=== PATIENT | female | born 1980 | race Caucasian/White ===

== ENCOUNTER 2018-02-20 06:22 | Emergency (ER) | payer OTHER ==
[2018-02-20 06:30] VITALS: RESP 16
[2018-02-20] MEDS ORDERED: AMOXIC-POT CLAV 875MG STARTER 2 EACH TABLET PO STA (07:14)
--- NOTE | 2018-02-20 07:19 | ED ---
ENT HPI - General Chief complaint: Dental/Oral Stated complaint: Dental Pain Time Seen by Provider: 02/20/18 07:02 Source: patient, RN notes reviewed, old records reviewed Mode of arrival: ambulatory Limitations: no limitations - History of Present Illness Initial comments: Patient is a 37-year-old female presents emergency Department due to complaint of dental pain. Patient reports that she had tooth #18 extracted approximately 10 days ago. Patient is concerned that it is infected because she's had increased pain over the past day. Patient has had no fevers or chills. She is here on a . She lives in [place]. Patient states that she's had no trismus. Denies any drainage in the mouth. Patient states that she's been taking ibuprofen for pain. - Related Data Previous Rx's Medication Instructions Recorded Amoxic-Pot Clav 875-125Mg 1 tab PO Q12HR #20 tablet 02/20/18 [Augmentin 875-125] HYDROcodone/APAP 5-325MG [[place] 1 tab PO Q6HR PRN #10 tab 02/20/18 5-325] Allergies Allergy/AdvReac Type Severity Reaction Status Date / Time acetaminophen Allergy Chest Pain Verified 02/20/18 06:31 [From Tylenol-Codeine #3] codeine Allergy Chest Pain Verified 02/20/18 06:31 [From Tylenol-Codeine #3] sulfamethoxazole Allergy Swelling Verified 02/20/18 06:31 [From Bactrim] tramadol Allergy Vomiting Verified 02/20/18 06:31 trimethoprim [From Bactrim] Allergy Swelling Verified 02/20/18 06:31 Review of Systems ROS Statement: Those systems with pertinent positive or pertinent negative responses have been documented in the HPI. ROS Other: All systems not noted in ROS Statement are negative. Past Medical History Past Medical History: No Reported History History of Any Multi-Drug Resistant Organisms: None Reported Past Surgical History: Cholecystectomy, Tubal Ligation Past Psychological History: No Psychological Hx Reported Smoking Status: Never smoker Past Alcohol Use History: None Reported, Unable to Obtain General Exam - General Exam Comments Initial Comments: 37-year-old female. Alert and oriented. Patient appears in no acute distress. Limitations: no limitations General appearance: alert Head exam: Present: atraumatic, normocephalic, normal inspection Eye exam: Present: normal appearance, PERRL, EOMI. Absent: scleral icterus, conjunctival injection, periorbital swelling ENT exam: Present: normal exam, mucous membranes moist. Absent: normal oropharynx ( has an extracted tooth #18. Surrounding gingival erythema. No drainable abscess at this time.) Neck exam: Present: normal inspection. Absent: tenderness, meningismus, lymphadenopathy Respiratory exam: Present: normal lung sounds bilaterally. Absent: respiratory distress, wheezes, rales, rhonchi, stridor Cardiovascular Exam: Present: regular rate, normal rhythm, normal heart sounds. Absent: systolic murmur, diastolic murmur, rubs, gallop, clicks GI/Abdominal exam: Present: soft, normal bowel sounds. Absent: distended, tenderness, guarding, rebound, rigid Extremities exam: Present: normal inspection, full ROM, normal capillary refill. Absent: tenderness, pedal edema, joint swelling, calf tenderness Back exam: Present: normal inspection Neurological exam: Present: alert, oriented X3, CN II-XII intact Psychiatric exam: Present: normal affect, normal mood Skin exam: Present: warm, dry, intact, normal color. Absent: rash Course Vital Signs 02/20/18 06:26 Temperature 98.7 F Pulse Rate 83 Respiratory 16 Rate Blood Pressure 118/73 O2 Sat by Pulse 99 Oximetry Medical Decision Making - Medical Decision Making Patient is a 37-year-old female presents emergency Department due to complaint of tooth #18 pain. She had it extracted approximately 10 days ago in [place]. She is here in a . She does have gingival erythema. No focal abscess at this time to be drained. Patient will be started on Augmentin , ibuprofen short course of pain meds. Discussed close follow-up with her dentist. She does have an appointment on Saturday. Patient agrees to treatment plan will comply. Return parameters were discussed. Disposition Clinical Impression: Pain, dental Disposition: HOME SELF-CARE Condition: Good Instructions: Toothache (ED) Additional Instructions: Patient advised to take medication as prescribed. Return to the emergency department if any alarming signs or symptoms occur. [facility] [place] [address] [phone] (existing clients only) For new clients: [phone] 1st consult: $50 (includes Xrays) Usually 30% less then private dentist for visits after. [employer] Have to pay $50 for Xrays anmd rest is covered. [phone] Prescriptions: Amoxic-Pot Clav 875-125Mg [Augmentin 875-125] 1 tab PO Q12HR #20 tablet HYDROcodone/APAP 5-325MG [[place] 5-325] 1 tab PO Q6HR PRN #10 tab PRN Reason: Pain Is patient prescribed a controlled substance at d/c from ED?: Yes When asked, does pt state using other controlled substances?: No If prescribed controlled substance>3 days was MAPS reviewed?: Prescribed <3 Days If opioid is for acute pain is fill amount 7 days or less?: Yes If Rx opioid, was Start Talking consent form obtained?: Yes Referrals: None,Stated [Primary Care Provider] - 1-2 days Time of Disposition: 07:18
[2018-02-20 07:47] VITALS: BP 123/81; PULSE 76; TEMP 98.6
== END 2018-02-20 07:45 | disposition home or self-care (01) ==
LOC: EC 06:22
DX: K08.89 Other specified disorders of teeth and supporting structures (principal); Z88.6 Allergy status to analgesic agent; Z88.5 Allergy status to narcotic agent; Z88.2 Allergy status to sulfonamides
CPT/HCPCS: 99283